=== PATIENT | female | born 1955 | race Caucasian/White ===

== ENCOUNTER 2017-03-19 07:58 | Emergency (ER) | payer OTHER ==
[2017-03-19 08:02] VITALS: BP 132/68; PULSE 82; TEMP 98; BMI 29.0
--- NOTE | 2017-03-19 09:10 | PDOC ---
History of Present Illness - General Chief Complaint: Injury Stated Complaint: FALL, RT ANKLE INJURY Time Seen by Provider: 03/19/17 08:25 History Source: Patient Exam Limitations: No Limitations - History of Present Illness Initial Comments: 03/19/17 08:27 fell down 2 steps this am- C/O pain and swelling to left ankle- able to walk but very difficult. Denies other injury. Used ice packs and elevated but not improved. 03/19/17 12:48 Occurred: reports: just prior to arrival, yesterday Severity: reports: moderate Pain Location: reports: lower extremity (left ) Modifying Factors: improves with: cold therapy Associated Symptoms (Fall): denies symptoms Past History - Travel Traveled outside of the country in the last 30 days: No Close contact w/someone who was outside of country & ill: No - Past Medical History Allergies/Adverse Reactions: Allergies Allergy/AdvReac Type Severity Reaction Status Date / Time No Known Allergies Allergy Verified 03/19/17 08:02 Home Medications: Ambulatory Orders Oxycodone HCl/Acetaminophen [Percocet 5-325 mg Tablet -] 1 - 2 tab PO Q4H PRN # 14 tablet MDD 4 03/19/17 Simvastatin [Zocor] 10 mg PO HS 03/19/17 Hypercholesterolemia: Yes - Psycho/Social/Smoking Cessation Hx Suicidal Ideation: No Smoking History: Never smoked Hx Alcohol Use: No Drug/Substance Use Hx: No Trauma Specific PMHX - Complaint Specific PMHX Back Injury: No Neck Injury: No Review of Systems - Review of Systems Able to Perform ROS?: Yes Is the patient limited Iranian proficient: Yes Constitutional: Yes: See HPI. No: Symptoms Reported, Fever, Malaise HEENTM: No: Symptoms Reported Respiratory: No: Symptoms reported Musculoskeletal: Yes: Symptoms Reported, See HPI, Joint Pain (left ankle and foot), Joint Swelling Integumentary: Yes: Symptoms Reported, See HPI, Bruising Neurological: Yes: Symptoms reported, See HPI, Numbness All Other Systems: Reviewed and Negative *Physical Exam - Vital Signs Last Vital Signs Temp Pulse Resp BP Pulse Ox 98.0 F 82 20 132/68 99 03/19/17 07:59 03/19/17 07:59 03/19/17 07:59 03/19/17 07:59 03/19/17 07:59 - Physical Exam General Appearance: Yes: Nourished, Appropriately Dressed, Apparent Distress HEENT: positive: CORY, Normal ENT Inspection, TMs Normal, Pharynx Normal Neck: positive: Supple Respiratory/Chest: positive: Lungs Clear, Normal Breath Sounds Musculoskeletal: positive: Decreased Range of Motion (point tenderness to lateral malleolus with deformity noted. No medial or navicular tenderness, neurovascular intact to foot and toes.). negative: Normal Inspection Extremity: positive: Normal Capillary Refill, Swelling. 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 Daughter and patient understand urgent need for orthopedist follow-up for potential casting versus surgical intervention. Posterior Ortho-Glass splint placed, understands non- weightbearing and crutch walking instructions given to patient by physical therapy. Provided #14 Percocet tablets for pain relief, and patient will follow- up with orthopedist at [facility]. *DC/Admit/Observation/Transfer Diagnosis at time of Disposition: Fibula fracture Qualifiers: Encounter type: initial encounter Fibula location: distal Fracture type: closed Fracture morphology: other fracture Laterality: left Qualified Code(s): S82.832A - Other fracture of upper and lower end of left fibula, initial encounter for closed fracture - Discharge Dispostion Disposition: HOME Admit: No - Prescriptions Prescriptions: Oxycodone HCl/Acetaminophen [Percocet 5-325 mg Tablet -] 1 - 2 tab PO Q4H PRN # 14 tablet MDD 4 PRN Reason: Pain - Referrals Referrals: Evelin Ludwig MD [Primary Care Provider] - - Patient Instructions Printed Discharge Instructions: Fracture Additional Instructions: Rest, ice to area on and off for 15 minutes 4-6 times a day Avoid heavy lifting or exercise until pain and swelling is resolved or until further directed Keep area highly elevated to reduce swelling Use splints/Robbi wrap as directed Followup with orthopedist in one to 2 days May use Percocet one or 25/325 mg tablets every 6 hours as needed for pain - Post Discharge Activity Work/School Note: Back to Work
== END 2017-03-19 09:27 | disposition home or self-care (01) ==
LOC: JERFT 07:58
PROC: 2W3MX1Z Immobilization of Left Lower Extremity using Splint (ICD-10-PCS; principal; 2017-03-19)
DX: S82.832A Other fracture of upper and lower end of left fibula, initial encounter for closed fracture (principal); W10.8XXA Fall (on) (from) other stairs and steps, initial encounter; Y93.89 Activity, other specified; Y92.018 Other place in single-family (private) house as the place of occurrence of the external cause
CPT/HCPCS: 29515; 73610-TC-LT; 99281-25

== ENCOUNTER → 2020-10-17 | Day surgery (SDC) | payer OTHER | END | disposition home or self-care (01) | LOC: JRADIR 09:34 | PROVIDERS: ATTEND Internal Medicine | PROC: 0G9G3ZX Drainage of Left Thyroid Gland Lobe, Percutaneous Approach, Diagnostic (ICD-10-PCS; principal; 2020-10-17) | DX: E04.1 Nontoxic single thyroid nodule (principal) | CPT/HCPCS: 10005; 76942 ==